=== PATIENT | male | born 1955 | race Two or more races ===

== ENCOUNTER 2016-11-02 19:13 | Emergency (ER) | payer OTHER ==
[~2016-11-02] VITALS: Ht 180.3 cm; Wt 81.8 kg
[~2016-11-02 19:13] MED LIST: LEVO100T4 PO; LOVA20TA PO; METF500T PO; TAMS-1 PO
[2016-11-02 19:30] VITALS: BP 149/75
[2016-11-02 19:41] LABS: GLUCOSE,POINT OF CARE 162 MG/DL (70-110)
== END 2016-11-02 20:54 | disposition home or self-care (01) ==
LOC: EMS 19:14
DX: J40 Bronchitis, not specified as acute or chronic (principal); J06.9 Acute upper respiratory infection, unspecified; E11.9 Type 2 diabetes mellitus without complications; E03.9 Hypothyroidism, unspecified; Z87.891 Personal history of nicotine dependence
CPT/HCPCS: 82962; 99283

== ENCOUNTER 2017-09-08 14:48 | Emergency (ER) | payer OTHER ==
[~2017-09-08] VITALS: Ht 177.8 cm; Wt 84.1 kg
[2017-09-08 15:02] LABS: GLUCOSE,POINT OF CARE 145 MG/DL (70-110)
[2017-09-08 16:13] VITALS: BP 141/73
== END 2017-09-08 16:18 | disposition home or self-care (01) ==
LOC: EMS 14:52
DX: K08.89 Other specified disorders of teeth and supporting structures (principal); R03.0 Elevated blood-pressure reading, without diagnosis of hypertension; E11.9 Type 2 diabetes mellitus without complications; E03.9 Hypothyroidism, unspecified; Z87.891 Personal history of nicotine dependence
CPT/HCPCS: 82962; 99283

== ENCOUNTER 2021-06-19 10:27 | Emergency (ER) | payer OTHER ==
[~2021-06-19] VITALS: Ht 180.3 cm; Wt 81.8 kg
[2021-06-19] MEDS ORDERED: CEPHALEXIN MONOHYDRATE 500 MG CAPSULE PO ONE (12:45)
[2021-06-19] MEDS ORDERED: SULFAMETHOX/TRIMETH DS 800-160 MG/TABLET PO ONE (12:45)
[2021-06-19] MEDS ORDERED: LISI-809 PO (12:51)
[2021-06-19] MEDS ORDERED: SIMV-43 PO (12:51)
[2021-06-19] MEDS ORDERED: METF-960 PO (12:51)
[2021-06-19 12:53] VITALS: BP 149/71
== END 2021-06-19 13:11 | disposition home or self-care (01) ==
LOC: EMS 10:30
DX: L03.317 Cellulitis of buttock (principal); M54.5 Low back pain; E11.9 Type 2 diabetes mellitus without complications; Z87.891 Personal history of nicotine dependence; Z79.84 Long term (current) use of oral hypoglycemic drugs
CPT/HCPCS: 99283